=== PATIENT | female | born 1985 | race Caucasian/White ===

== ENCOUNTER 2017-03-31 20:10 | Emergency (ER) | payer MEDICAID, SELFPAY ==
[~2017-03-31] VITALS: Ht 170.2 cm; Wt 77.8 kg
[2017-03-31] MEDS ORDERED: SODIUM CHLORIDE 0.9% 1,000ML IVBOLUS ONE (20:30)
[2017-03-31] MEDS ORDERED: PLEASE ENTER ALLERGIES MC SCH ×2 (20:30)
[2017-03-31] MEDS ORDERED: MECLIZINE CHEWABLE 25 MG TAB PO ONE (20:30)
[2017-03-31] MEDS ORDERED: SODIUM CHLORIDE FLUSH 10ML SYR IVF ONE ×2 (20:30→21:00)
[2017-03-31] MEDS ORDERED: KETOROLAC 30 MG/1 ML IVPush ONE (21:00)
[2017-03-31] MEDS ORDERED: DIPHENHYDRAMINE 50 MG/ML, 1ML IVPush ONE (21:00)
[2017-03-31] MEDS ORDERED: METOCLOPRAMIDE 5 MG/ML, 2ML IVPush ONE (21:00)
[2017-03-31] MEDS ORDERED: DIPHENHYDRAMINE 50 MG/ML, 1ML ONE (21:05)
[2017-03-31] MEDS ORDERED: KETOROLAC 30 MG/1 ML ONE (21:05)
[2017-03-31] MEDS ORDERED: MECLIZINE CHEWABLE 25 MG TAB ONE (21:06)
[2017-03-31] MEDS ORDERED: PROCHLORPERAZINE 5 MG/ML, 2ML ONE (21:06)
[2017-03-31] MEDS ORDERED: METOCLOPRAMIDE 5 MG/ML, 2ML ONE (21:12)
[2017-03-31 21:23] LABS: BLOOD UREA NITROGEN 16 mg/dL (7-18)
[2017-03-31 22:26] VITALS: BP 105/63
== END 2017-03-31 22:29 | disposition home or self-care (01) ==
LOC: ED 22:23
DX: R42 Dizziness and giddiness (principal); R20.0 Anesthesia of skin
CPT/HCPCS: 36415; 70450; 80048; 82040; 84443; 84703; 85025; 93005; 96361; 96374; 96375; 99285; J1200; J1885; J2765; J7030